=== PATIENT | female | born 1955 | race Caucasian/White ===

== ENCOUNTER → 2016-10-06 | Outpatient (CLI) | payer BC ==
--- NOTE | 2016-10-06 12:33 | MR ---
EXAMINATION TYPE: MR knee RT wo con DATE OF EXAM: 10/06/2016 12:01 PM COMPARISON: 11/13/2013 HISTORY: Right knee pain TECHNIQUE: Multiplanar, multisequence imaging of the right knee is performed. FINDINGS: MEDIAL MENISCUS: Oblique tear posterior horn medial meniscus. Abdomen is intact. LATERAL MENISCUS: Anterior and posterior horns are intact without tear. CRUCIATE LIGAMENTS: The anterior and posterior cruciate ligaments are intact and unremarkable. COLLATERAL LIGAMENTS: The medial collateral ligament and lateral collateral ligament complex are intact and unremarkable. EXTENSOR MECHANISM: Visualized quadriceps and patellar tendons are intact. EFFUSION: No evidence for joint effusion. POPLITEAL CYST: Baby Yan's cyst noted measuring less than 1 cm. TRICOMPARTMENT SPACES: The tricompartment joint spaces appear mildly narrowed. CARTILAGE/BONE MARROW SIGNAL:: Cartilaginous defect with underlying increased bone marrow signal ante rior intercondylar region distal femur. OTHER: Subchondral cyst proximal tibia. IMPRESSION: 1. Oblique tear posterior horn medial meniscus. 2. Mild changes of osteoarthritis. 3. Small cartilaginous defect with underlying increased bone marrow signal anterior intercondylar reg ion distal femur.
== END | disposition home or self-care (01) ==
LOC: RADMRIMAIN 11:24
PROVIDERS: ATTEND Orthopaedic Surgery
DX: S83.241A Other tear of medial meniscus, current injury, right knee, initial encounter (principal); M24.10 Other articular cartilage disorders, unspecified site; M94.8X6 Other specified disorders of cartilage, lower leg

== ENCOUNTER → 2018-06-27 | Outpatient (CLI) | payer BC ==
--- NOTE | 2018-06-27 17:56 | PN ---
PROGRESS NOTE Mariya is 63, coming to see me for an annual check regarding her obstructive sleep apnea. The patient needs her prescriptions to be renewed and refilled. Note that the patient has severe RADHA with an AHI of 76, and the patient is currently being treated with a CPAP pressure of 13 cm of water. She is using AirFit P10 nose pillows. Her treatment has been extremely successful over the years. She has gained around 6 pounds since her last evaluation. She has been very compliant. She continues to benefit from the treatment. No snoring while on the treatment. She wakes up alert and refreshed. She is taking the machine with her wherever she goes, even when she travels, knowing that she is unable to go to sleep without her being on treatment. Based on the compliance data, the patient utilizes her CPAP machine every night, and over the past 30 days the patient has achieved more than 4 hours 28/30, and average CPAP usage is around 6.6 hours per night. The leak factor is 3 L/minute. AHI is down to 0.6. Treatment has been extremely successful. REVIEW OF SYSTEMS: Twelve-point review of systems was done. Positive findings were all mentioned above in the history of present illness. No nasal congestion. No nighttime heartburn, shortness of breath or chest pain. No hypersomnia or sleepiness during the day. Marquette score is currently 5. PHYSICAL EXAMINATION: BP is 138/82, pulse 59, respirations 18, temperature 98.1, saturation 96% on room air. Weight is 252. Height is 64 inches. Marquette score is 5. GENERAL APPEARANCE: Calm, comfortable. Head is atraumatic, normocephalic. NECK: Supple. JVD. No goiter or neck masses. Mallampati class IV. LUNGS: Clear to auscultation. Heart sounds are regular rate and rhythm. Normal S1, S2. No S3, S4. No murmurs. HEART: Sounds are regular. Normal S1, S2. No S3, S4. No murmurs. ABDOMEN: Soft, nontender. No organomegaly. EXTREMITIES: No edema. No cyanosis or clubbing. NEUROLOGIC: Alert and oriented x3. There is no focal neurological deficit. PSYCHIATRIC: Negative for anxiety or depression. IMPRESSION: 1. Symptomatic obstructive sleep apnea, severe, with apnea/hypopnea index of 76. The patient continues to receive successful CPAP therapy at a pressure of 13. Treatment is successful for now. 2. Hypersomnia, recovered. Marquette score is down to 5. 3. Obesity with a body mass index of 43. PLAN: 1. Continue CPAP with a pressure of 13. 2. Continued the AirFit P10 nose pillows. 3. Encourage weight loss. 4. See me back in a year's time, earlier if needed. MMJANUARY / IJN: [id number] /
== END | disposition home or self-care (01) ==
LOC: SLEEP 16:02
PROVIDERS: ATTEND Internal Medicine Critical Care Medicine
DX: G47.33 Obstructive sleep apnea (adult) (pediatric) (principal); E66.9 Obesity, unspecified; Z68.41 Body mass index [BMI] 40.0-44.9, adult; Z99.89 Dependence on other enabling machines and devices

== ENCOUNTER 2019-02-15 13:59 | Day surgery (SDC) | payer BC ==
--- NOTE | 2019-02-14 14:09 | HP ---
HISTORY AND PHYSICAL SURGERY SCHEDULED: 02/15/2019 Micaela Herrera is a 63-year-old patient seen with symptomatic right great toe hallux rigidus. We discussed treatment options. She elected to proceed with right great toe dorsal cheilectomy. Consent was obtained. PAST MEDICAL HISTORY: Asthma, hypothyroidism. PAST SURGICAL HISTORY: Carpal tunnel release, cholecystectomy, hysterectomy, thyroidectomy. DAILY MEDICATIONS: 1. Synthroid. 2. Rosuvastatin. 3. Zyrtec. ALLERGIES: None. SOCIAL HISTORY: She denies tobacco. PHYSICAL EVALUATION RIGHT FOOT: She has tenderness along the great toe metatarsophalangeal joint. There is very limited range of motion. There is a palpable dorsal osteophyte. Distal neurovascular exam is intact. RADIOGRAPHS OF THE RIGHT GREAT TOE: Revealed metatarsophalangeal joint osteoarthritis with large dorsal osteophytes. IMPRESSION: 1. Right great toe hallux rigidus. 2. Hyper lipidemia. 3. Hypothyroidism. PLAN: Right great toe dorsal cheilectomy. MMODL / IJN: [id number] /
[2019-02-15] MEDS ORDERED: MIDAZOLAM 2 MG/2 ML VIAL IV PRN (14:02)
[2019-02-15] MEDS ORDERED: HYDROmorphone 0.5 MG/0.5 ML SYRINGE IVP PRN (14:02)
[2019-02-15] MEDS ORDERED: ONDANSETRON 4 MG/2 ML VIAL IVP ONE (14:02)
[2019-02-15] MEDS ORDERED: LACTATED RINGERS 1,000 ML IV SCH (14:02)
[2019-02-15] MEDS ORDERED: DEXAMETHASONE SOD PHOSPHATE 10 MG/ML 1 ML VIAL IV ONE (14:02)
[2019-02-15] MEDS ORDERED: LIDOCAINE 1% 20 ML VIAL (10MG/ML) FOR IV START INTRADERMA ONE (14:16)
[2019-02-15] MEDS ORDERED: KETOROLAC 30 MG/ML 1 ML VIAL ONE (14:45)
[2019-02-15] MEDS ORDERED: fentaNYL (PF) 50 MCG/ML 2 ML AMP ONE (14:45)
[2019-02-15] MEDS ORDERED: PROPOFOL 10 MG/ML 20 ML VIAL IV ONE (14:45)
[2019-02-15] MEDS ORDERED: MIDAZOLAM 2 MG/2 ML VIAL ONE (14:45)
[2019-02-15] MEDS ORDERED: LIDOCAINE 1% INJ 10MG/ML (20 ML MDV) ONE (14:45)
[2019-02-15] MEDS ORDERED: BUPIVACAINE (PF) 0.25% 30 ML VIAL SQ ONE (15:11)
--- NOTE | 2019-02-15 15:33 | P.OP ---
Date of Procedure: 02/15/19 Preoperative Diagnosis: Right great toe hallux rigidus Postoperative Diagnosis: Same Procedure(s) Performed: Right great toe dorsal cheilectomy Anesthesia: MELITA, local Surgeon: Biju Hussein Water Quality Tester #1: Aristeo [place] Estimated Blood Loss (ml): 2 Pathology: none sent Condition: stable Disposition: PACU Indications for Procedure: 63-year-old patient seen with symptomatic right great toe hallux rigidus. After having treatment options discussed with her, she elected to proceed with right great toe dorsal cheilectomy. Operative Findings: See description of procedure Description of Procedure: The patient was taken to the operative suite. The patient underwent a general anesthetic by the department of anesthesia. A well-padded tourniquet was placed proximal right lower extremity. The right lower extremity was prepped and draped in the normal sterile orthopedic fashion. The patient did receive preoperative IV antibiotics. The tourniquet was insufflated to 300. A dorsal incision was made along the area of the metatarsal phalangeal joint to the great toe. I dissected down to the extensor hallux longus tendon. That was split longitudinally. We now made an incision through the capsule. This exposed the large dorsal osteophyte. A small #12 osteotome was utilized to remove the dorsal osteophyte. I used various rongeurs to complete the removal of any osteophyte formation. We noted significantly improved range of motion of the metatarsal phalangeal joint. We had good hemostasis. Wound was irrigated. The extensor pollicis longus tendon was repaired with 2-0 Vicryl. The skin was with 3-0 nylon. The area was infiltrated with quarter percent plain Marcaine totaling 10 mL. Sterile dressings were applied. Sterile web roll and Román bandage were applied. The tourniquet was released with good immediate capillary refill of the toes noted. The patient was awakened, transferred to a bed and recovery stable condition. Delano LEACH assisted with the procedure.
[2019-02-15 15:39] VITALS: TEMP 97.9
[2019-02-15 16:25] VITALS: RESP 16
[2019-02-15 16:44] VITALS: BP 141/60; PULSE 70
== END 2019-02-15 17:04 | disposition home or self-care (01) ==
LOC: OR 13:59
PROVIDERS: ATTEND Orthopaedic Surgery
DX: M20.21 Hallux rigidus, right foot (principal); J45.909 Unspecified asthma, uncomplicated; G47.33 Obstructive sleep apnea (adult) (pediatric); E89.0 Postprocedural hypothyroidism; E78.5 Hyperlipidemia, unspecified; E66.9 Obesity, unspecified; Z79.890 Hormone replacement therapy; Z79.899 Other long term (current) drug therapy; Z90.710 Acquired absence of both cervix and uterus; Z90.49 Acquired absence of other specified parts of digestive tract; Z98.890 Other specified postprocedural states; Z99.89 Dependence on other enabling machines and devices; Z68.41 Body mass index [BMI] 40.0-44.9, adult
CPT/HCPCS: 28289; J2250; J1100; J0690; J2405; J2001; J3010; J1885; J2704

== ENCOUNTER → 2019-03-12 | Outpatient (CLI) | payer BC ==
--- NOTE | 2019-03-13 09:43 | MM ---
Reason for exam: screening (asymptomatic). Last mammogram was performed 4 years ago. History: Patient is postmenopausal. Family history of breast cancer in sister. Physical Findings: A clinical breast exam by your physician is recommended on an annual basis and results should be correlated with mammographic findings. MG 3D Screening Mammo W/Cad Bilateral CC and MLO view(s) were taken. Prior study comparison: March 12, 2015, bilateral MG 3d screening mammo w/cad. June 23, 2009, right breast diagnostic digital bonnie. The breast tissue is heterogeneously dense. This may lower the sensitivity of mammography. Finding #1: There is a 10 mm equal density (isodense), irregular mass in the lower outer quadrant of the left breast. Finding #2: There are indeterminate grouped/clustered calcifications in the central position of the right breast. ASSESSMENT: Incomplete: need additional imaging evaluation, BI-RAD 0 RECOMMENDATION: Special view mammogram of both breasts. If lesion persists on supplemental views, image directed ultrasound is recommended. [facility] will attempt to contact patient to return for supplemental views and ultrasound if indicated.
== END | disposition home or self-care (01) ==
LOC: RADMAMWWP 13:03
PROVIDERS: ATTEND Family Medicine
DX: Z12.31 Encounter for screening mammogram for malignant neoplasm of breast (principal)
CPT/HCPCS: 77063; 77067

== ENCOUNTER → 2019-03-19 | Outpatient (CLI) | payer BC ==
--- NOTE | 2019-03-19 10:56 | MM ---
Reason for exam: additional evaluation requested from abnormal screening. Last mammogram was performed less than 1 month ago. History: Patient is postmenopausal. Family history of breast cancer in sister. Physical Findings: Nurse did not find any significant physical abnormalities on exam. MG Work Up Mamm w CAD BILAT Bilateral LM view(s) were taken. CC with magnification and LM with magnification view(s) were taken of the right breast. Prior study comparison: March 12, 2019, bilateral MG 3d screening mammo w/cad. March 12, 2015, bilateral MG 3d screening mammo w/cad. Lower outer quadrant punctate grouped calcifications centrally, numbering approximately 3 calcifications at this time. 6 month follow up recommended. No persisting abnormality seen on the left. These results were verbally communicated with the patient and result sheet given to the patient on 03/19/19. ASSESSMENT: Probably benign, BI-RAD 3 RECOMMENDATION: Follow-up diagnostic mammogram of the right breast in 6 months.
== END | disposition home or self-care (01) ==
LOC: RADMAMWWP 09:11
PROVIDERS: ATTEND Family Medicine
DX: R92.8 Other abnormal and inconclusive findings on diagnostic imaging of breast (principal)
CPT/HCPCS: 77066

== ENCOUNTER → 2020-01-25 | Outpatient (CLI) | payer BC ==
--- NOTE | 2020-01-25 12:03 | MM ---
Reason for exam: additional evaluation requested from prior study. Last mammogram was performed 10 months ago. History: Patient is postmenopausal. Family history of breast cancer in sister. Physical Findings: Nurse did not find any significant physical abnormalities on exam. MG Diagnostic Mammo RT w CAD CC, MLO, and XCCL view(s) were taken of the right breast. Prior study comparison: March 19, 2019, bilateral MG work up mamm w CAD BILAT. March 12, 2019, bilateral MG 3d screening mammo w/cad. There are scattered fibroglandular densities. Finding: There are four grouped/clustered, fine calcifications in the right breast, which is increased by one. New finding since March 19, 2019 and March 12, 2019. These results were verbally communicated with the patient and result sheet given to the patient on 01/25/20. ASSESSMENT: Benign, BI-RAD 2 RECOMMENDATION: Follow-up diagnostic mammogram of both breasts in 2 months. Back on schedule for March 2020.
== END | disposition home or self-care (01) ==
LOC: RADMAMWWP 11:10
PROVIDERS: ATTEND Family Medicine
DX: N64.89 Other specified disorders of breast (principal)
CPT/HCPCS: 77065

== ENCOUNTER → 2020-03-11 | Outpatient (CLI) | payer BC ==
--- NOTE | 2020-03-11 12:00 | CT ---
EXAMINATION TYPE: CT sinus wo con DATE OF EXAM: 03/11/2020 COMPARISON: None HISTORY: 64-year-old female J32.9, chronic Sinusitis CT DLP: 573 mGycm Automated exposure control for dose reduction was used. TECHNIQUE: Noncontrast axial views of the paranasal sinuses were obtained. Coronal reconstructions pe rformed. FINDINGS: PARANASAL SINUSES: Mild mucosal thickening floor of the left maxillary sinus and trace on the right. The ethmoid, sphenoid, and frontal sinuses are well pneumatized. There is no air-fluid level. Reactive migue- osteogenesis is not seen. There is no destruction of the osseous rowland of the paranasal sinuses. THE NASAL CAVITY: The osteomeatal complexes are patent. There is slight leftward nasal septal deviation. The imaged brain and orbits are normal in appearance. Mastoid air cells and middle ear cavities are well pneumatized. Reformatted images confirm above findings. IMPRESSION: Mild mucosal thickening floor of the left maxillary sinus and trace on the right. Very slight leftwar d nasal septal deviation.
== END | disposition home or self-care (01) ==
LOC: RADCTMAIN 11:02
PROVIDERS: ATTEND Nurse Practitioner Family
DX: J34.2 Deviated nasal septum (principal); J34.89 Other specified disorders of nose and nasal sinuses
CPT/HCPCS: 70486

== ENCOUNTER 2020-05-28 06:56 | Day surgery (SDC) | payer BC ==
[~2020-05-28 06:56] MED LIST: LACTATED RINGERS 1,000 ML IV SCH; LIDOCAINE 1% (10MG/ML) FOR IV START INTRADERMA PRN
[2020-05-28 07:22] VITALS: TEMP 98
[2020-05-28] MEDS ORDERED: MIDAZOLAM 2 MG/2 ML VIAL ONE (07:35)
[2020-05-28] MEDS ORDERED: PROPOFOL 10 MG/ML 20 ML VIAL IV ONE (07:35)
[2020-05-28] MEDS ORDERED: LIDOCAINE 1% INJ 10MG/ML (20 ML MDV) ONE (07:35)
[2020-05-28] MEDS ORDERED: fentaNYL (PF) 50 MCG/ML 2 ML AMP ONE (07:35)
--- NOTE | 2020-05-28 07:43 | P.GSHP ---
History of Present Illness H&P Date: 05/28/20 CHIEF COMPLAINT: Colon screen HISTORY OF PRESENT ILLNESS: The patient is a 65-year-old female who presents for colon screen. Lower endoscopy was offered for further evaluation and management. PAST MEDICAL HISTORY: Please see list. PAST SURGICAL HISTORY: Please see list. MEDICATIONS: Please see list. ALLERGIES: Please see list. SOCIAL HISTORY: No illicit drug use FAMILY HISTORY: No reports of Crohn disease or ulcerative colitis. REVIEW OF ORGAN SYSTEMS: CONSTITUTIONAL: No reports of fevers or chills. PHYSICAL EXAM: VITAL SIGNS: Stable GENERAL: Well-developed pleasant in no acute distress. HEENT: No scleral icterus. Extraocular movements grossly intact. Moist buccal mucosa. NECK: Supple without lymphadenopathy. CHEST: Unlabored respirations. Equal bilateral excursions. CARDIOVASCULAR: Regular rate and rhythm. Distal 2+ pulses. ABDOMEN: Soft, nontender, nondistended. MUSCULOSKELETAL: No clubbing, cyanosis, or edema. ASSESSMENT: 1. Colon screen. PLAN: 1. Recommend proceeding with a lower endoscopy Past Medical History Past Medical History: Asthma, GERD/Reflux, Hyperlipidemia, Osteoarthritis (OA), Sleep Apnea/CPAP/BIPAP, Thyroid Disorder Additional Past Medical History / Comment(s): IBS, CPAP use. History of Any Multi-Drug Resistant Organisms: None Reported Past Surgical History: Cholecystectomy, Hysterectomy Additional Past Surgical History / Comment(s): RIGHT GREAT TOE CHIELECTOMY IN 2019.partial thyroidectomy, hand surg., right knee surgery. Past Anesthesia/Blood Transfusion Reactions: No Reported Reaction, Motion Sickness Past Psychological History: No Psychological Hx Reported Smoking Status: Never smoker Past Alcohol Use History: Rare Past Drug Use History: None Reported - Past Family History Father Family Medical History: No Reported History Sister(s) Family Medical History: Cancer Medications and Allergies Home Medications Medication Instructions Recorded Confirmed Type Levothyroxine Sodium [Synthroid] 100 mcg PO QAM 02/05/14 05/28/20 History Rosuvastatin [Crestor] 20 mg PO HS 04/12/17 05/28/20 History Azelastine HCl [Astepro] 1 spray NASAL DAILY 05/23/20 05/28/20 History Fexofenadine/Pseudoephedrine 1 tab PO DAILY 05/23/20 05/28/20 History [Marsha-D 24 Hour Tablet] Glucosam/Wiley-Msm1/C/Michael/Bosw 1 tab PO DAILY 05/23/20 05/28/20 History [Glucosamine-Chondroitin Tablet] Multivitamins, Thera [Multivitamin 1 tab PO DAILY 05/23/20 05/28/20 History (formulary)] Ubidecarenone [Co Q-10] 1 tab PO DAILY 05/23/20 05/28/20 History Allergies Allergy/AdvReac Type Severity Reaction Status Date / Time amoxicillin Allergy Nausea & Verified 05/28/20 07:13 [facility] - Exam Vital Signs Temp Pulse Resp BP Pulse Ox 98.0 F 78 17 129/73 98 05/28/20 07:17 05/28/20 07:17 05/28/20 07:17 05/28/20 07:17 05/28/20 07:17
--- NOTE | 2020-05-28 08:04 | P.PCN ---
Date of Procedure: 05/28/20 Description of Procedure: PREOPERATIVE DIAGNOSIS: Colonoscopy screening POSTOPERATIVE DIAGNOSIS: Tubular adenoma splenic flexure Scattered diverticulosis OPERATION: Colonoscopy to the ileocecal valve and appendiceal orifice, cecum Colonoscopy with hot snare polypectomies SURGEON: Claire Arguelles MD. ANESTHESIA: MAC. INDICATIONS: The patient is an 65-year-old male who presents for her first colonoscopy exam. Benefits and risks were described and informed consent was obtained. DESCRIPTION OF PROCEDURE: The patient had undergone Suprep. She had been brought into the operating room and laid in the left lateral decubitus position. After adequate intravenous sedation, the rectum was examined with 2% lidocaine jelly. No external hemorrhoids were encountered. The rectal tone was within normal limits. No lesions were palpated in the rectal vault. An Olympus colonoscope was advanced until the cecum, ileocecal valve and appendiceal orifice were clearly viewed. The prep was excellent. A few scattered diverticulosis was encountered. A 4 mm colonic polyp at the splenic flexure was removed with hot snare. No evidence of focal colitis was found. Retroflexion of the scope demonstrated grade 1 internal hemorrhoids without active bleeding or inflammation. The colon was desufflated. The patient had tolerated the procedure well. Withdrawal time was over 6 minutes. FINDINGS: Aronchick preparation quality scale 1 (1-5) Internal hemorrhoids, grade 1 No external hemorrhoids No arteriovenous malformations. Few scattered diverticulosis Removal of 1 polyp: - Snare polypectomy at splenic flexure, 4 mm tubulovillous adenoma polyp. No focal colitis. RECOMMENDATIONS: Repeat colonoscopy in 3 years, 2023 Plan - Discharge Summary Discharge Rx Participant: No New Discharge Prescriptions: Continue Levothyroxine Sodium [Synthroid] 100 mcg PO QAM Rosuvastatin [Crestor] 20 mg PO HS Fexofenadine/Pseudoephedrine [Marsha-D 24 Hour Tablet] 1 tab PO DAILY Azelastine HCl [Astepro] 1 spray NASAL DAILY Glucosam/Wiley-Msm1/C/Michael/Bosw [Glucosamine-Chondroitin Tablet] 1 tab PO DAILY Multivitamins, Thera [Multivitamin (formulary)] 1 tab PO DAILY Ubidecarenone [Co Q-10] 1 tab PO DAILY Discharge Medication List Levothyroxine Sodium [Synthroid] 100 mcg PO QAM 02/05/14 [History] Rosuvastatin [Crestor] 20 mg PO HS 12/12/17 [History] Azelastine HCl [Astepro] 1 spray NASAL DAILY 05/23/20 [History] Fexofenadine/Pseudoephedrine [Marsha-D 24 Hour Tablet] 1 tab PO DAILY 05/23/20 [History] Glucosam/Wiley-Msm1/C/Michael/Bosw [Glucosamine-Chondroitin Tablet] 1 tab PO DAILY 05/23/20 [History] Multivitamins, Thera [Multivitamin (formulary)] 1 tab PO DAILY 05/23/20 [History] Ubidecarenone [Co Q-10] 1 tab PO DAILY 05/23/20 [History] Follow up Appointment(s)/Referral(s): Claire Arguelles MD [STAFF PHYSICIAN] - As Needed Patient Instructions/Handouts: *Surgery [facility] - (Anesthesia) Endoscopy Discharge Instructions, Diverticulosis (DC), Colorectal Polyps (DC) Activity/Diet/Wound Care/Special Instructions: Repeat colonoscopy 3 years, 2023 Discharge Disposition: HOME SELF-CARE
[2020-05-28 08:06] VITALS: RESP 16
[2020-05-28 08:26] VITALS: BP 102/68; PULSE 76
== END 2020-05-28 08:44 | disposition home or self-care (01) ==
LOC: ORWHC2ENDO 06:56
PROVIDERS: ATTEND Surgery Plastic and Reconstructive Surgery
DX: Z12.11 Encounter for screening for malignant neoplasm of colon (principal); K63.5 Polyp of colon; K57.30 Diverticulosis of large intestine without perforation or abscess without bleeding; K64.0 First degree hemorrhoids; K58.9 Irritable bowel syndrome, unspecified; E78.5 Hyperlipidemia, unspecified; J45.909 Unspecified asthma, uncomplicated; G47.33 Obstructive sleep apnea (adult) (pediatric); E07.9 Disorder of thyroid, unspecified; M19.90 Unspecified osteoarthritis, unspecified site; K21.9 Gastro-esophageal reflux disease without esophagitis; Z79.890 Hormone replacement therapy; Z79.899 Other long term (current) drug therapy; Z88.0 Allergy status to penicillin; Z99.89 Dependence on other enabling machines and devices; Z90.49 Acquired absence of other specified parts of digestive tract; Z90.710 Acquired absence of both cervix and uterus; Z80.9 Family history of malignant neoplasm, unspecified; Z98.890 Other specified postprocedural states
CPT/HCPCS: 88305; 45385; J2250; J2001; J3010; J2704

== ENCOUNTER → 2020-06-12 | Outpatient (CLI) | payer BC ==
--- NOTE | 2020-06-12 11:54 | MM ---
Reason for exam: follow-up at short interval from prior study. Last mammogram was performed 5 months ago. History: Patient is postmenopausal. Family history of breast cancer in sister. Physical Findings: Nurse did not find any significant physical abnormalities on exam. MG 3D Diag Mammo W/Cad ELY Bilateral CC and MLO view(s) were taken. Prior study comparison: January 25, 2020, right breast MG diagnostic mammo RT w CAD. March 12, 2019, bilateral MG 3d screening mammo w/cad. March 12, 2015, bilateral MG 3d screening mammo w/cad. The breast tissue is heterogeneously dense. This may lower the sensitivity of mammography. Finding: There are stable, fine, segmental calcifications in the right breast. No significant changes in finding since January 25, 2020, March 12, 2019, and March 12, 2015. These results were verbally communicated with the patient and result sheet given to the patient on 06/12/20. ASSESSMENT: Benign, BI-RAD 2 RECOMMENDATION: Routine screening mammogram of both breasts in 1 year.
--- NOTE | 2020-06-12 20:51 | BD ---
EXAMINATION TYPE: Axial Bone Density DATE OF EXAM: 06/12/2020 COMPARISON: NONE CLINICAL HISTORY: Height: 65 Weight: 229.6 FRAX RISK QUESTIONS: Alcohol (3 or more units per day): no Family History (Parent hip fracture): yes Glucocorticoids (More than 3mos): no (Ex: prednisone, prednisolone, methylprednisolone, dexamethasone, and hydrocortisone). History of Fracture in Adulthood: no Secondary Osteoporosis: 1. Type 1 Diabetes: no 2. Hyperthyroidism: no 3. Menopause before 45: yes 4. Malnutrition: no 5. Chronic liver disease: no Rheumatoid Arthritis: no Current Tobacco Use: no RISK FACTORS HISTORY OF: Family History of Osteoporosis: no Active: yes Diet low in dairy products/other sources of calcium: yes Postmenopausal woman: age 39 MEDICATIONS: cholesterol meds Thyroid Medications: synthroid How Lon years Additional History: EXAM MEASUREMENTS: Bone mineral densitometry was performed using the [employer] System. Bone mineral density as measured about the Lumbar spine is: ----- L1-L4(G/cm2): 1.306 T Score Values are as follows: ----- L2: 1.5 ----- L3: 1.0 ----- L4: 0.5 ----- L1-L4: 1.0 Bone mineral density has: decreased -2.4 % since study of: 05.28.2003 Bone mineral density about the R hip (g/cm2): 0.931 Bone mineral density about the L hip (g/cm2): 0.893 T Score values are as follows: -----R Neck: -0.8 -----L Neck: -1.0 -----R Total: 0.3 -----L Total: 0.5 Bone mineral density has: decreased -4.5 % since study of: 05.28.2003 IMPRESSION: Normal (Values between +1 and -1 indicate normal bone mass). Consider repeating this study in 5 year s or sooner if there is some new clinical indication. NOTE: T-SCORE=SD OF THE YOUNG ADULT MEAN.
== END | disposition home or self-care (01) ==
LOC: RADMAMWWP 10:06
PROVIDERS: ATTEND Family Medicine
DX: R93.89 Abnormal findings on diagnostic imaging of other specified body structures (principal); Z78.0 Asymptomatic menopausal state
CPT/HCPCS: 77062; 77066; 77080

== ENCOUNTER → 2020-11-05 | Outpatient (CLI) | payer BC ==
--- NOTE | 2020-11-06 08:44 | XR ---
EXAMINATION TYPE: XR chest 2V DATE OF EXAM: 11/05/2020 COMPARISON: NONE HISTORY: Cough for 6 months, asthma TECHNIQUE: Frontal and lateral views of the chest are obtained. FINDINGS: There is no focal air space opacity, pleural effusion, or pneumothorax seen. Bronchial wal l thickening is suspected. Scattered nodular densities within the lungs may represent granulomas, the re are probable calcified mediastinal nodes. There is eventration of the hemidiaphragms. Some probabl e linear subsegmental atelectatic change or scarring at the left lung base is noted. Aorta is dense. The cardiac silhouette size is within normal limits. The osseous structures are intact. IMPRESSION: Probable old granulomatous disease which may be confirmed with comparison with old chest x-rays if available, basilar atelectasis or scarring. Correlate for reactive airways disease, bronch itis, consider chest CT.
== END | disposition home or self-care (01) ==
LOC: RADXRMAIN 17:11
PROVIDERS: ATTEND Otolaryngology
DX: J45.909 Unspecified asthma, uncomplicated (principal)
CPT/HCPCS: 71046

== ENCOUNTER → 2020-11-25 | Outpatient (CLI) | payer BC | END | disposition home or self-care (01) | LOC: RADCTMAIN 18:04 | PROVIDERS: ATTEND Family Medicine | DX: Z53.9 Procedure and treatment not carried out, unspecified reason (principal) ==

== ENCOUNTER → 2020-12-02 | Outpatient (CLI) | payer BC ==
[2020-12-02 11:51] LABS: African American GFR (CKD) >90 (>60 ml/min/1.73 sqM); Blood Urea Nitrogen 17 mg/dL (7-17); Non-African American GFR(CKD) >90 (>60 ml/min/1.73 sqM)
--- NOTE | 2020-12-02 13:00 | CT ---
EXAMINATION TYPE: CT chest wo/w con DATE OF EXAM: 12/02/2020 COMPARISON: 11/05/2020 chest x-ray HISTORY: Functional disorders of polymorphonuclear neutrophils, abnormal chest xray CT DLP: 1575 mGycm Automated exposure control for dose reduction was used. TECHNIQUE: CT scan of the chest is performed without and with IV Contrast, patient injected with 100 mL of Isovu e 300. MIP Images are created on CT scanner and reviewed. 3D reconstructed images are created on an independent workstation and reviewed. FINDINGS: LUNGS: There is a pleural-based 3 mm nodule superior segment left lower lobe. No evidence of consolid ative pneumonia. Additional 3 mm nodule right upper lobe axial image 23 laterally. 3 mm nodule seen i n the right upper lobe anterior segment near the right lung apex axial image 13. 2 mm nodule apex lef t upper lobe. Additional calcified nodule subpleural medial aspect right lung apex measuring 2 mm. No pleural effusion or pneumothorax. No focal pneumonia. Additional calcified granuloma right upper lob e. Additional calcified granuloma left lower lobe. MEDIASTINUM: Small pericardial effusion. There is a small hiatal hernia. Numerous mediastinal and hil ar calcified lymph nodes are seen and there are calcified granuloma right upper lobe. OTHER: Small hiatal hernia with evidence of splenic granuloma. Hypertrophic and degenerative change of the spine. Surgical clips in the gallbladder fossa. Low attenuation in the liver is nonspecific wolfe ggestive of hepatic steatosis. IMPRESSION: 1. Findings compatible with chronic granulomatous disease. Calcified lymph nodes and pulmonary nodule s noted. Subcentimeter noncalcified lymph nodes are nonspecific and too small to characterize. Most l ikely on the basis of noncalcified granulomas and could be followed 12 month basis. Repeat chest x-ra y.
== END | disposition home or self-care (01) ==
LOC: RADCTMAIN 10:09
PROVIDERS: ATTEND Family Medicine
DX: R91.8 Other nonspecific abnormal finding of lung field (principal); D71 Functional disorders of polymorphonuclear neutrophils
CPT/HCPCS: 82565; 84520; 71270; 36415; Q9967